=== PATIENT | male | born 1960 | race African-American/Black ===

== ENCOUNTER 2017-02-28 11:28 | Emergency (ER) | payer OTHER ==
[2017-02-28 11:55] LABS: INR-International Normal Ratio 2.1; PTT 44.6 SEC (22.9-36.1); Prothrombin Time 23.8 SEC (12.0-14.7)
[2017-02-28 12:01] LABS: #Eosinphils 0.1 thou/uL (0.0-0.7); #Lymphocytes 0.5 thou/uL (1.20-3.40); #Monocytes 0.1 thou/uL (0.11-0.59); #Neutrophils 2.5 thou/uL (1.40-6.50); %Basophils 0.1 % (0.0-1.0); %Eosinophils 3.1 % (0.0-10.0); %Lymphocytes 14.7 % (21.0-51.0); %Monocytes 2.2 % (0.0-10.0); %Neutrophils 79.8 % (42.0-75.0); Hemoglobin 9.4 g/dL (14.0-18.0); Mean Corpuscular HGB CONC 32.4 g/dL (32.0-36.0); Mean Corpuscular Hemoglobin 25.2 pg (27.0-31.0); Platelet Count 109 thou/uL (130-400); RBC Distribution Width 14.8 % (11.5-14.5); Red Blood Cell (RBC) Count 3.72 mill/uL (4.70-6.10); White Blood Cell (WBC) Count 3.1 thou/uL (4.8-10.8)
[2017-02-28 12:03] LABS: CK (CPK) 839 U/L (30-200)
[2017-02-28 12:05] LABS: Troponin I 0.026 ng/mL (< 0.028)
[2017-02-28 12:20] LABS: CKMB 37.7 ng/mL (0-6.6)
[2017-02-28 12:32] LABS: Acetaminophen Less than 6.0 mcg/mL (10.0-30.0); Alcohol Less than 10 mg/dL (Less than 10); Salicylate Less than 8.0 mg/dL (15.0-30.0)
--- NOTE | 2017-02-28 12:32 | CT ---
CT BRAIN WITHOUT CONTRAST: HISTORY: Altered mental status. The patient has a history of end-stage renal disease and is on hemodialysis. The patient apparently missed the last few appointments. FINDINGS/IMPRESSION: Comparison is made with the exam of 02/16/17. Exam is limited due to motion artifact. No evidence of infarct, hemorrhage, midline shift, or abnormal extraaxial fluid collections is seen. The bony calvarium is intact. There is mucosal disease in the paranasal sinuses. POS: [facility]
--- NOTE | 2017-02-28 12:52 | RAD ---
RADIOGRAPH CHEST 1 VIEW: Date: 02/28/17. Time: 12:29 p.m. HISTORY: A 56-year-old male with altered mental status, unresponsive. COMPARISON: 02/16/17. FINDINGS: The previously noted right-sided double-lumen dialysis central venous catheter, has been removed. Th e current study is supine, which makes it insensitive for pneumothorax detection. There are prominen t heterogeneous interstitial densities in the bilateral lower lung zones, especially the right. Some of this could be chronic, similar to the prior study. There is a defibrillation paddle at midline, partially obscuring the medial portion of right lung. There is a second defibrillation paddle over t he left upper quadrant of the abdomen laterally. Mild haziness of the right lung. IMPRESSION: 1. Interval removal of the right-sided central venous dialysis catheter. 2. Nonspecific mild bilateral pulmonary densities. 3. Ongoing cardioversion. JOSIE [] POS: [facility]
[2017-02-28 12:57] LABS: Bacteria/HPF None Seen HPF (None Seen); Bilirubin Negative (Negative); Blood, Urine Moderate (Negative); Clarity Clear (Clear); Glucose, Urine (Dipstick) 100 mg/dL (Negative); Leukocyte Negative (Negative); Nitrite Negative (Negative); Protein, Urine (Dipstick) > or equal to 300 mg/dL (Neg-Trace); Specific Gravity, Urine 1.025 (1.005-1.030); Squamous Epithelial 0-3 HPF (0-3); Urobilinogen 0.2 mg/dL (0.2-1.0); WBC/HPF None Seen HPF (0-3)
[2017-02-28 13:00] LABS: Hypochromia MODERATE=16-30 cells (100X) (0-5/hpf)
[2017-02-28 13:01] LABS: Microcytosis SLIGHT = 6-15 cells (100X) (0-5/hpf); Poikilocytosis SLIGHT = 6-15 cells (100X) (0-5/hpf)
[2017-02-28 13:04] LABS: Amphetamine Not Detected (NotDetected); Barbiturates Screen Not Detected (NotDetected); Benzodiazepine Screen Not Detected (NotDetected); Cocaine Metabolite Screen Detected (NotDetected); Medtox Control Line Valid? VALID (VALID); Methadone Not Detected (NotDetected); Methamphetamine Not Detected (NotDetected); Opiate Screen Not Detected (NotDetected); Oxycodone Screen Not Detected (NotDetected); Phencyclidine (PCP) Not Detected (NotDetected); THC/Cannabinoid Screen Not Detected (NotDetected); Tricyclic Screen Not Detected (NotDetected)
[2017-02-28 13:18] LABS: ALT (SGPT) 15 U/L (8-55); AST (SGOT) 54 U/L (5-34); Alkaline Phosphatase 90 U/L (40-150); Anion Gap 18 mmol/L (10-20); BUN (Urea Nitrogen) 52 mg/dL (8.4-25.7); Bilirubin, Total 0.4 mg/dL (0.2-1.2); Calc. Creatinine Clearance 0 mL/min (70-130); Calcium 7.6 mg/dL (7.8-10.44); Carbon Dioxide 18 mmol/L (22-29); Chloride 103 mmol/L (98-107); Estimated GFR-MDRD 14; Globulin 3.3 g/dL (2.4-3.5); Glucose 113 mg/dL (70-105); Protein, Total 5.3 g/dL (6.0-8.3); Sodium 134 mmol/L (136-145)
[2017-02-28] MEDS ORDERED: Sodium Chloride 0.9% 1,000 ML ONE ×4 (14:03→14:04)
--- NOTE | 2017-03-02 08:03 | CT ---
CT BRAIN WITHOUT CONTRAST: HISTORY: Altered mental status. The patient has a history of end-stage renal disease and is on hemodialysis. The patient apparently missed the last few appointments. FINDINGS: Comparison is made to the exam of 02/16/17. The current exam is limited due to motion artifact. No evidence of a large transcortical infarct, hemorrhage, midline shift, or abnormal extraaxial fluid collections is seen. Subtle findings cannot be excluded on this study. The bony calvarium is intac t. There is mucosal disease in the paranasal sinuses. IMPRESSION: Limited exam.. No definite evidence of obvious acute intracranial process. POS: [facility]
== END 2017-02-28 15:11 | disposition short-term general hospital (02) ==
LOC: NAV ERS 11:28
DX: T68.XXXA Hypothermia, initial encounter (principal); N17.9 Acute kidney failure, unspecified; D64.9 Anemia, unspecified; F14.10 Cocaine abuse, uncomplicated; I12.9 Hypertensive chronic kidney disease with stage 1 through stage 4 chronic kidney disease, or unspecified chronic kidney disease; E11.22 Type 2 diabetes mellitus with diabetic chronic kidney disease; N18.9 Chronic kidney disease, unspecified; Z87.891 Personal history of nicotine dependence
CPT/HCPCS: 36415; 36416; 70450; 71010; 80053; 80306; 80307; 81003; 81015; 82553; 83605; 83880; 84484; 85025; 85610; 85730; 93005; 94760; 96361; 96374; 99292; J7050